=== PATIENT | female | born 2000 | race Caucasian/White ===

== ENCOUNTER 2023-01-16 06:31 | Emergency (ER) | payer OTHER ==
[2023-01-16] MEDS ORDERED: Adacel Vial IM ONE ×2 (06:33→06:54)
[2023-01-16 06:57] VITALS: BP 113/73; PULSE 91; O2SAT 99
--- NOTE | 2023-01-16 07:22 | ERPHSYRPT ---
- History of Present Illness Time Seen by Provider: 01/16/23 07:10 Source: patient Exam Limitations: no limitations Patient Subjective Stated Complaint: pt states she cut her finger on a scalpel during surgery. Triage Nursing Assessment: pt alert and oriented, answers questions approp. pt ambulatory with steady gait noted. smal open area to 3rd digit rt hand. mild amt of bleeding at this time. 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 Is very small cut with a scalpel. Patient is here to for postexposure evaluation. Patient does not wish to have any medications at this time. Occurred: just prior to arrival Method of Injury: other (Tip of knife) Quality: other (Pinpoint tenderness) Severity of Pain-Max: mild Severity of Pain-Current: mild Extremities Pain Location: 3rd finger: right Modifying Factors: Improves With: nothing Associated Symptoms: none Hx Tetanus, Diphtheria Vaccination/Date Given: No Hx Influenza Vaccination/Date Given: No Hx Pneumococcal Vaccination/Date Given: No Immunizations Up to Date: No Travel Risk - International Travel Have you traveled outside of the country in past 3 weeks: No - Coronavirus Screening Are you exhibiting any of the following symptoms?: No Close contact with a COVID-19 positive Pt in past 14-21 Days: No - Vaccine Status Have you recieved a Covid-19 vaccination: No - Review of Systems Constitutional: No Symptoms Eyes: No Symptoms Ears, Nose, & Throat: No Symptoms Respiratory: No Symptoms Cardiac: No Symptoms Abdominal/Gastrointestinal: No Symptoms Genitourinary Symptoms: No Symptoms Musculoskeletal: No Symptoms Skin: Other (1 mm laceration tip right third digit) Neurological: No Symptoms Psychological: No Symptoms Endocrine: No Symptoms Hematologic/Lymphatic: No Symptoms Immunological/Allergic: No Symptoms All Other Systems: Reviewed and Negative - Past Medical History Pertinent Past Medical History: No - Past Surgical History Past Surgical History: Yes Other Surgical History: acdf - Social History Smoking Status: Never smoker Exposure to second hand smoke: No Drug Use: none Patient Lives Alone: No - Female History Hx Last Menstrual Period: last month Hx Now: No - Nursing Vital Signs Nursing Vital Signs: Initial Vital Signs Temperature 98.3 F 01/16/23 06:43 Pulse Rate 91 H 01/16/23 06:43 Respiratory Rate 16 01/16/23 06:43 Blood Pressure 113/73 01/16/23 06:43 O2 Sat by Pulse Oximetry 99 01/16/23 06:43 Pain Scale Pain Intensity 0 - Physical Exam General Appearance: no apparent distress, alert Eyes, Ears, Nose, Throat Exam: normal ENT inspection, moist mucous membranes Neck Exam: normal inspection, non-tender, supple, full range of motion Cardiovascular/Respiratory Exam: chest non-tender, no respiratory distress Abdominal Exam: non-tender Back Exam: normal inspection, normal range of motion, No CVA tenderness, No vertebral tenderness Shoulder Exam: normal inspection, non-tender, no evidence of injury, normal ROM Elbow/Forearm Exam: normal inspection, non-tender, no evidence of injury, normal ROM Wrist Exam: normal inspection, non-tender, no evidence of injury, normal ROM Hand Exam: soft tissue tenderness (Tip of third digit right hand 1 mm punctate laceration) Neuro/Tendon Exam: normal sensation, normal motor functions, normal tendon functions, responds to pain, no evidence tendon injury Mental Status Exam: alert, oriented x 3, cooperative Skin Exam: normal color, warm, dry, laceration SpO2 Interpretation: normal (See above) SpO2: 99 O2 Delivery: Room Air - Course Nursing assessment & vital signs reviewed: Yes Ordered Tests: Active Orders 24 hr Category Date Time Status Wound Care STAT Care 01/16/23 06:34 Active Medication Summary Discontinued Medications Generic Name Dose Route Start Last Admin Trade Name Freq PRN Reason Stop Dose Admin Diphtheria/Tetanus/Acell Pertussis 0.5 ml 01/16/23 06:33 01/16/23 06:57 Tdap --Diph,Pertuss(Acell),Tet Vac/Pf 0.5 Ml Vial IM 01/16/23 06:34 0.5 ml .ONCE ONE Administration Diphtheria/Tetanus/Acell Pertussis Confirm 01/16/23 06:54 Tdap --Diph,Pertuss(Acell),Tet Vac/Pf 0.5 Ml Vial Administered 01/16/23 06:55 Dose 0.5 ml IM .STK-MED ONE - Progress Progress: unchanged Progress Note: 01/16/23 07:20 This patient's medical issue is 1 of low complexity. The work-up is a standard work-up for postexposure. Patient does not wish to have any medication and she signed the form declining medication use at this time. She is to follow-up with her primary care provider for results of the testing that was performed today. She also is to follow-up with her primary care provider to discuss any further treatment options. Counseled pt/family regarding: lab results, diagnosis, need for follow-up Medical Desision Making - Diagnostic Testing Diagnostic test were ordered, analyzed, and reviewed by me: Yes - Risk of complications Low Risk: Low risk of morbidity from additional dx testing or treatment - Departure Departure Disposition: Home Clinical Impression: Needlestick injury accident with exposure to body fluid Condition: Stable Critical Care Time: No Referrals: [facility] [Primary Care Provider] - Follow up/PCP as directed Additional Instructions: Wash the finger injury site daily with soap and water. Do not use any lotions ointments or creams to site. Follow-up with your primary care provider for results of the testing.
[2023-01-17 10:49] LABS: HBsAg Screen Negative (Negative); HIV Screen 4th Generation wRfx Non Reactive (Non Reactive); Hep B Surface Ab, Quant 4.5 mIU/mL (Immunity>9.9); Hep C Virus Ab Non Reactive (Non Reactive)
== END 2023-01-16 07:37 | disposition home or self-care (01) ==
LOC: ER - EH 06:31
DX: S61.232A Puncture wound without foreign body of right middle finger without damage to nail, initial encounter (principal); W46.1XXA Contact with contaminated hypodermic needle, initial encounter; Y92.234 Operating room of hospital as the place of occurrence of the external cause; Y99.0 Civilian activity done for income or pay; Z20.6 Contact with and (suspected) exposure to human immunodeficiency virus [HIV]; Z20.5 Contact with and (suspected) exposure to viral hepatitis; Z28.310 Unvaccinated for COVID-19
CPT/HCPCS: 36415; 86317; 87340; 87389; 90471; 99283; G0472; 86803; 90715

== ENCOUNTER 2024-06-02 09:39 | Emergency (ER) | payer OTHER ==
[2024-06-02 10:03] VITALS: BP 120/70; PULSE 86; O2SAT 98
[2024-06-02] MEDS ORDERED: Adacel Vial IM ONE (10:19)
[2024-06-02] MEDS: Adacel Vial IM ONE (10:21)
--- NOTE | 2024-06-02 10:33 | ERPHSYRPT ---
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 superfical laceration to right index finger , no bleeding noted Physician History: Pt states about 30 minutes ago she accidentally stabbed the tip of her right ring finger with a dirty #10 scalpel with a resulting small laceration; denies numbness. Allergies/Adverse Reactions: No Known Drug Allergies Allergy (Unverified 06/02/24 09:50) Home Medications: No Reportable Medications [No Reported Medications] 06/02/24 [History] Hx Tetanus, Diphtheria Vaccination/Date Given: No Hx Influenza Vaccination/Date Given: No Hx Pneumococcal Vaccination/Date Given: No Immunizations Up to Date: Yes Travel Risk - International Travel Have you traveled outside of the country in past 3 weeks: No - Emerging Infectious Disease Are you exhibiting symptoms associated with any current EIDs: No - Review of Systems Skin: Other (laceration of right ring finger) - Past Medical History Pertinent Past Medical History: No - Past Surgical History Past Surgical History: Yes Musculoskeletal: Orthopedic Surgery Other Surgical History: neck - Female History Hx Last Menstrual Period: april Hx Now: No - Social History Smoking Status: Never smoker Exposure to second hand smoke: No Drug Use: none Patient Lives Alone: No - Social Determinants of Health Will the patient participate in the screening: Yes Do you worry about a steady place to live?: No Do you have any problems with any of the following?: No known problems In the past 12 months,have you had to go without utilities?: No Transportation Issues: No Has anyone in your support network made you feel unsafe?: No Have you or anyone in your house had to go without enough: No - Nursing Vital Signs Nursing Vital Signs: Initial Vital Signs Pulse Rate 86 06/02/24 10:02 Respiratory Rate 16 06/02/24 10:02 Blood Pressure 120/70 06/02/24 10:02 O2 Sat by Pulse Oximetry 98 06/02/24 10:02 Pain Scale Pain Intensity 2 - Physical Exam General Appearance: alert Shoulder Exam: normal ROM Elbow/Forearm Exam: normal ROM Wrist Exam: normal ROM Hand Exam: normal ROM, laceration (1/2 cm superficial laceration to right ring finger tip) Mental Status Exam: alert SpO2 Interpretation: normal SpO2: 98 O2 Delivery: Room Air - Course Nursing assessment & vital signs reviewed: Yes Ordered Tests: Active Orders 24 hr Category Date Time Status Wound Care STAT Care 06/02/24 10:11 Active Medication Summary Generic Name Dose Route Start Last Admin Trade Name Yolanda PRN Reason Stop Dose Admin Emtricitabine/Tenofovir 1 tablet 06/03/24 10:00 06/02/24 11:16 Emtricitabine/Tenofovir 1 Tablet PO 06/04/24 10:01 1 tablet DAILY CARISA Administration Raltegravir 400 mg 06/02/24 10:45 06/02/24 11:16 Raltegravir Potassium 400 Mg Tablet PO 07/02/24 10:44 400 mg STAT CARISA Administration Discontinued Medications Generic Name Dose Route Start Last Admin Trade Name Yolanda PRN Reason Stop Dose Admin Diphtheria/Tetanus/Acell Pertussis 0.5 ml 06/02/24 10:11 06/02/24 10:21 Tdap --Diph,Pertuss(Acell),Tet Vac/Pf 0.5 Ml Vial IM 06/02/24 10:12 0.5 ml .ONCE ONE Administration Diphtheria/Tetanus/Acell Pertussis Confirm 06/02/24 10:19 Tdap --Diph,Pertuss(Acell),Tet Vac/Pf 0.5 Ml Vial Administered 06/02/24 10:20 Dose 0.5 ml IM .STK-MED ONE Hepatitis B Vaccine Confirm 06/02/24 11:34 Hepatitis B Ped Vaccine 10 Mcg Vial: Insurance Administered 06/02/24 11:35 Dose 10 mcg IM .STK-MED ONE - Progress Counseled pt/family regarding: diagnosis, need for follow-up - Departure Departure Disposition: Home Clinical Impression: Laceration of right ring finger Condition: Stable Critical Care Time: No Instructions: Wound Care (DC) Additional Instructions: Apply neosporin & bandage daily to right ring finger wound for the next week. Follow up with employee health today.
[2024-06-02 11:10] VITALS: RESP 18
[2024-06-02] MEDS: ISENTRESS PO SCH (11:16)
[2024-06-02] MEDS: TRUVADA 200 MG-300 MG TABLET PO SCH (11:16)
[2024-06-02] MEDS ORDERED: ENGERIX-B 10 MCG PED: INSURANCE IM ONE (11:34)
[2024-06-03 08:37] LABS: HBsAg Screen Negative (Negative); Hep B Surface Ab, Quant <3.5 mIU/mL (Immunity>10); Hep C Virus Ab Non Reactive (Non Reactive)
[2024-06-03 09:18] LABS: HIV Screen 4th Generation wRfx Non Reactive (Non Reactive)
== END 2024-06-02 12:07 | disposition home or self-care (01) ==
LOC: ER - EH 09:39
DX: S61.214A Laceration without foreign body of right ring finger without damage to nail, initial encounter (principal); W26.0XXA Contact with knife, initial encounter; Y92.239 Unspecified place in hospital as the place of occurrence of the external cause; Y99.0 Civilian activity done for income or pay; Z20.6 Contact with and (suspected) exposure to human immunodeficiency virus [HIV]; Z20.5 Contact with and (suspected) exposure to viral hepatitis; Z23 Encounter for immunization
CPT/HCPCS: 36415; 86317; 87340; 87389; 90471; 99283; G0472; 86803; 90715; 90744; A9270-GY